=== PATIENT | female | born 1960 | race Caucasian/White ===

== ENCOUNTER → 2020-02-08 | Outpatient (CLI) | payer OTHER ==
[~2020-02-08] MED LIST: AIRBORNE TABLE1 EACH PO; ASA81BEC PO; HYDROCODON-ACE1 EAC7 PO; PERCOCET 7.5-31 EAC1 PO
== END ==
LOC: LAB 08:06
PROVIDERS: ATTEND Orthopaedic Surgery Foot and Ankle Surgery
DX: Z01.812 Encounter for preprocedural laboratory examination (principal); Z20.828 Contact with and (suspected) exposure to other viral communicable diseases

== ENCOUNTER 2020-02-09 12:02 | Day surgery (SDC) | payer OTHER ==
[~2020-02-09] VITALS: Ht 167.6 cm; Wt 70.3 kg
[~2020-02-09 12:02] MED LIST changes: -ASA81BEC PO; -PERCOCET 7.5-31 EAC1 PO
[2020-02-09 13:15] VITALS: BP 112/58
[2020-02-09] MEDS ORDERED: PERCOCET 7.5-31 EAC1 PO (14:46)
[2020-02-09] MEDS ORDERED: ASA81BEC PO (14:47)
[2020-02-09 14:58] VITALS: BP 112/58
--- NOTE | 2020-02-11 15:12 | O ---
[facility] [place] [address] OPERATIVE REPORT Name: GASTON WHITLOCK Room #: [facility]..#: [id number] Admission: 02/09/20 Attend Phys: Gerard Rhodes MD Discharge: 02/09/20 Date of : 60 Report #: [id number] THIS REPORT FOR: cc: KATHY - Family physician unknown FAM - Family physician unknown Gerard Rhodes MD ~ DATE OF SERVICE: 02/09/2020 PREOPERATIVE DIAGNOSIS: Left lateral malleolar fracture. POSTOPERATIVE DIAGNOSIS: Left lateral malleolar fracture. PROCEDURE: Left lateral malleolus open reduction and internal fixation. SURGEON: Dr. Gerard Rhodes. COOK TORTILLA: None. ANESTHESIA: General. ESTIMATED BLOOD LOSS: 5 mL. TOURNIQUET TIME: 30 minutes. COMPLICATIONS: There are no complications. DESCRIPTION OF PROCEDURE: The patient was brought to the operating room where she was placed under general anesthesia. Once under adequate general anesthesia, her left lower extremity was prepped and draped in a sterile manner. The extremity was elevated, exsanguinated, tourniquet placed at 300 mmHg. A lateral incision over the distal fibula was made. This was dissected down through soft tissue to the fibular fracture, which was then identified. A reduction clamp was then placed across it, wants any hematoma was evacuated from the fracture site. A reduction clamp was placed across it along with a one-third tubular plate. Fixation then was achieved with multiple screw fixation in both the distal and proximal portions of the plate. Three screws were placed proximal and 3 screws distal in the one-third tubular plate. Excellent fixation and alignment was achieved as verified under fluoroscopy. The wound was then irrigated copiously and closed with 2-0 Vicryl in subcutaneous tissues and iveth were used to close the skin. The wound was dressed with Xeroform, 4 x 4s, and sterile soft compressive dressing with a short leg cast was placed. Tourniquet was let down at 30 minutes. Toes were pink and warm with good capillary refill. There were no complications from the [address] [address] OPERATIVE REPORT Name: CHINYEREGASTON Room #: [facility]..#: [id number] Admission: 02/09/20 Attend Phys: Gerard Rhodes MD Discharge: 02/09/20 Date of : 60 Report #: [id number] procedure. The patient tolerated the procedure well and was taken to recovery room without incident. <ELECTRONICALLY SIGNED> By: Gerard Rhodes MD 02/11/20 1512 [id number] Gerard Rhodes MD /nt
== END 2020-02-09 14:58 | disposition home or self-care (01) ==
LOC: OR 12:02 → TBA 12:03 → OR 13:48
PROVIDERS: ATTEND Orthopaedic Surgery Foot and Ankle Surgery
DX: S82.62XA Displaced fracture of lateral malleolus of left fibula, initial encounter for closed fracture (principal); K21.9 Gastro-esophageal reflux disease without esophagitis; Z98.890 Other specified postprocedural states; Z79.899 Other long term (current) drug therapy; Z79.82 Long term (current) use of aspirin; Z90.710 Acquired absence of both cervix and uterus; X58.XXXA Exposure to other specified factors, initial encounter; Y93.89 Activity, other specified; Y92.89 Other specified places as the place of occurrence of the external cause; Y99.8 Other external cause status
CPT/HCPCS: 50010; 50101; 50386; 51131; 51210; 51272; 51412; 56524; 56525; 56667; 57091; 57180; 62110; 62900; 70005